=== PATIENT | male | born 1985 | race Hispanic/Latino ===

== ENCOUNTER → 2023-08-19 | Outpatient (CLI) | payer OTHER | END | disposition home or self-care (01) | LOC: EDSEX → SHCH 14:07 → EDUNIT# 15:00 | PROVIDERS: ATTEND Student in an Organized Health Care Education/Training Program | DX: R07.9 Chest pain, unspecified (principal) | CPT/HCPCS: 93306 ==

== ENCOUNTER → 2023-08-24 | Outpatient (CLI) | payer OTHER ==
[~2023-08-24] MED LIST: IOHEXOL 350 MG/ML 100ML INFUS..BTL IV ONE; METOPROLOL TARTRATE 1 MG/ML 5ML VIAL IV ONE; NITROGLYCERIN 4.1 GM SPRAY TL ONE
== END | disposition home or self-care (01) ==
LOC: EDSEX → EDUNIT# 11:30 → EDSEX 11:32 → RAH 11:32
PROVIDERS: ATTEND Student in an Organized Health Care Education/Training Program
DX: R07.9 Chest pain, unspecified (principal); M47.815 Spondylosis without myelopathy or radiculopathy, thoracolumbar region
CPT/HCPCS: 75574; J3490; Q9967